=== PATIENT | female | born 1965 | race Caucasian/White ===

== ENCOUNTER → 2017-01-07 | Outpatient (CLI) | payer OTHER ==
--- NOTE | 2017-01-07 15:52 | Diagnostic Imaging Report ---
INDICATION: Pain. FINDINGS: The cervical vertebral body heights are maintained. The oblique views revealed no appreciable bony encroachment upon neural foramina. The prevertebral space appeared normal. No cervical fracture or traumatic malalignment. There is mild lower cervical spondylosis. IMPRESSION: Mild lower cervical degenerative changes aligned anatomically with no fracture or dislocation and normal appearance of the prevertebral tissues. No acute finding. Report given to Rocio Bautista at 3:50 p.m. 01/07/2017/cb Dictated by: Dictated on workstation # [id number]
== END ==
LOC: RAD 14:36
PROVIDERS: ATTEND Nurse Practitioner Family
DX: M54.2 Cervicalgia (principal)
CPT/HCPCS: 72050